=== PATIENT | male | born 1935 | race Caucasian/White ===

== ENCOUNTER 2021-04-07 18:06 | Inpatient (IN) | payer MEDICARE, BC ==
[~2021-04-07] VITALS: Ht 177.8 cm; Wt 128.0 kg
[2021-04-07] MEDS ORDERED: LASIX 40MG TABL40 MG PO (20:13)
[2021-04-07] MEDS ORDERED: ULTRAM 50MG TAB50 MG PO (20:14)
[2021-04-07] MEDS ORDERED: PRINIVIL40 MG PO (20:14)
[2021-04-07] MEDS ORDERED: MOBIC15 MG PO (20:14)
[2021-04-07] MEDS ORDERED: NORVASC 5MG5 MG/TAB PO (20:14)
[2021-04-07] MEDS ORDERED: SYNTHROID0.05 MG/TA PO (20:15)
[2021-04-07] MEDS ORDERED: ZYLOPRIM 300MG300 MG PO (20:15)
[2021-04-07 21:04] VITALS: BP 122/57; PULSE 90; TEMP 99.9
[2021-04-07] MEDS ORDERED: ASPIRIN 81M81 MG/TA2 PO (22:29)
[2021-04-08] VITALS (7 sets, daily range): BP systolic 97–115; BP diastolic 43–64; PULSE 78–109; TEMP 97.2–99.3
--- NOTE | 2021-04-08 02:07 | NUR ---
PATIENT TO FLOOR AROUND 1999 BY EMS STAFF. VSS. ASSESSMENT DONE. EMAR COMPLETED WITH HELP OF PATIENTS DAUGHTER, SUSY OVER THE PHONE. DENIES PAIN. PATIENT WAS INCONTINENT OF URINE AND LINENS WERE CHANGED. PATIENT NOW WEARING BRIEF. RED AND EXCORIATED IN SKIN FOLDS AND ON THE TIP OF THE PENIS/FORESKIN. 20 G TO L FA WITH IV ABX INFUSING INTERMITTENTLY. HAS BEEN NPO SINCE MIDNIGHT. 4 L O2 INFUSING VIA NC. HAS BEEN RESTING IN BED.
[2021-04-08 07:34] LABS: BASO % 0.2 % (0.0-2.0); EOS % 0.1 % (0.0-4.0); GRAN # 14.2 K/mm3 (1.4-6.5); GRAN % 86.6 % (42.2-75.2); HEMATOCRIT 44.9 % (42.0-52.0); HEMOGLOBIN 13.7 g/dl (13.5-18.0); LYMPH # 0.7 K/mm3 (1.2-3.4); MEAN CELL VOLUME 94 fl (80.0-100.0); MEAN CORPUSCULAR HEMOGLOBIN 29 pg (27-31); MEAN CORPUSCULAR HGB CONC 31 g/dl (33.0-37.0); MEAN PLATELET VOLUME 11.9 fl (7.4-10.4); MONO # 1.4 K/mm3 (0.1-0.6); MONO % 8.5 % (1.7-9.3); PLATELET COUNT 214 K/mm3 (130-400); RED BLOOD COUNT 4.79 M/mm3 (4.20-5.60); REDCELL DISTRIBUTION WIDTH-CV 14.2 % (11.5-14.5)
[2021-04-08 07:54] LABS: CREATININE, serum 1.02 mg/dL (0.72-1.25); POTASSIUM 4.7 mmol/L (3.5-4.5)
--- NOTE | 2021-04-08 10:38 | NUR ---
SW met with patient to complete intake. Patient states that he lives alone and his next of contact is daughter Yamile [phone]. Patient provides that he uses a walker currently, and states for the most part is independent with ADLs Patient provides that he does not utilize any home health services at this time. Patient provides that his PCP is Dr Andrade, pharmacy is [facility], and DPOA is his daugther which he has documenation at his home. Patient's plan is to return to his home up on DC and has no concerns with doing so. SW will continue to follow. DC plan: home/lives alone (may need placement)
--- NOTE | 2021-04-08 11:55 | NUR ---
PT'S PO MEDS WERE HELD THIS MORNING DUE TO PATIENT BEING NPO FOR POSSIBLE PROCEDURE. DR. HIDALGO DOES NOT PLAN TO PROCEED WITH PROCEDURE, PATIENT HAS BEEN ADVANCED TO LIQUID DIET AND ORAL MEDS ARE NOW BEING ADMINISTERED. HOWEVER, PATIENT'S BLOOD PRESSURE IS SOFT (108/57) AND RN CONSULTED WITH DR. BENAVIDEZ WHO GAVE VERBAL ORDER TO HOLD ORAL BLOOD PRESSURE MEDS BUT ADMINISTER LASIX.
[2021-04-08 14:31] LABS: MAGNESIUM 2.1 mg/dL (1.6-2.6)
--- NOTE | 2021-04-08 18:50 | NUR ---
Bedside shift report received, assumed care for goring cutter. Assessment complete. A&Ox4-very drowsy and lethargic. LINA Kamara-Hospitalist has been in to evaluate patient due to increased O2 needs/tachypnea. O2 currently at 6L/HFNC with O2 sats in mid 90s. Denies pain/nausea. Lungs with fine crackles all snider. Plan of care discussed for this shift to include meds/O2/breathing tx/calling for questions or concerns. Call light in reach. Will monitor.
--- NOTE | 2021-04-08 19:09 | NUR ---
RT at bedside for EKG/breathing tx.
[2021-04-08 20:08] LABS: ARTERIAL BLD GAS O2 SATURATION 94.9 % (92-100); ARTERIAL BLD GAS TCO2 CT 34.4; ARTERIAL BLOOD GAS BASE EXCESS 0.7 (-2-2); ARTERIAL BLOOD GAS HCO3 31.7 meq/L (22-26); ARTERIAL BLOOD GAS PO2 76.8 mmHg (80-100)
[2021-04-08 20:10] LABS: ARTERIAL BLOOD GAS PCO2 86.9 mmHg (35-45); ARTERIAL BLOOD GAS pH 7.18 (7.35-7.45)
[2021-04-08 22:08] LABS: ARTERIAL BLD GAS O2 SATURATION 93.2 % (92-100); ARTERIAL BLD GAS TCO2 CT 35.6; ARTERIAL BLOOD GAS BASE EXCESS 2.4 (-2-2); ARTERIAL BLOOD GAS PCO2 84.1 mmHg (35-45); ARTERIAL BLOOD GAS PO2 65.9 mmHg (80-100); ARTERIAL BLOOD GAS pH 7.21 (7.35-7.45)
--- NOTE | 2021-04-09 00:10 | NUR ---
Patient remains on BiPaP and is tolerating well. Denies pain/nausea/shortness of breath. Vs remain stable.
--- NOTE | 2021-04-09 02:12 | NUR ---
Much more alert now. BiPaP continues and tolerating well. Repositioned in bed at this time-debbie care given. Incontinent of a large amount of urine. Denies current needs. Call light in reach. Will monitor.
--- NOTE | 2021-04-09 03:06 | NUR ---
Called to desk stating he was starving and hadnt eaten all day. BiPaP removed and HFNC applied to could eat. Denies pain/nausea. Call lig in reach. Will monitor.
--- NOTE | 2021-04-09 03:44 | NUR ---
BiPaP reapplied at this time. Tolerated full liquids well.
[2021-04-09 04:18] VITALS: BP 94/48; PULSE 86; TEMP 98.9
[2021-04-09 05:12] LABS: ARTERIAL BLD GAS O2 SATURATION 94.3 % (92-100); ARTERIAL BLD GAS TCO2 CT 28.9; ARTERIAL BLOOD GAS BASE EXCESS -1.2 (-2-2); ARTERIAL BLOOD GAS PCO2 61.6 mmHg (35-45); ARTERIAL BLOOD GAS PO2 67.4 mmHg (80-100); ARTERIAL BLOOD GAS pH 7.26 (7.35-7.45)
--- NOTE | 2021-04-09 06:27 | NUR ---
Dr Lopez notified of new consult for patient.
[2021-04-09 06:43] LABS: BASO % 0.1 % (0.0-2.0); GRAN # 12.2 K/mm3 (1.4-6.5); GRAN % 84.1 % (42.2-75.2); HEMATOCRIT 40.3 % (42.0-52.0); LYMPH # 0.7 K/mm3 (1.2-3.4); MEAN CELL VOLUME 94 fl (80.0-100.0); MEAN CORPUSCULAR HEMOGLOBIN 28 pg (27-31); MEAN CORPUSCULAR HGB CONC 30 g/dl (33.0-37.0); MONO # 1.5 K/mm3 (0.1-0.6); MONO % 10.1 % (1.7-9.3); PLATELET COUNT 272 K/mm3 (130-400); RED BLOOD COUNT 4.31 M/mm3 (4.20-5.60); REDCELL DISTRIBUTION WIDTH-CV 14.3 % (11.5-14.5)
[2021-04-09 06:56] LABS: CALCIUM 8.6 mg/dL (8.4-10.2); CREATININE, serum 1.33 mg/dL (0.72-1.25); POTASSIUM 5.2 mmol/L (3.5-4.5)
[2021-04-09 08:14] VITALS: BP 116/56; PULSE 65; TEMP 99.1
--- NOTE | 2021-04-09 08:15 | NUR ---
PATIENT IS RESTING COMFORTABLY IN BED WITH CPAP IN PLACE. PATIENT IS ALERT AND ORIENTED TO PERSON. PATIENT DENIES ANY NEEDS AT THIS TIME. WILL CONTINUE TO MONITOR.
--- NOTE | 2021-04-09 08:45 | NUR ---
CPAP REMOVED FOR PATIENT TO EAT BREAKFAST. TRAY SET UP AND PATIENT ASSISTED WITH LIQUID DIET FOR BREAKFAST. PATIENT STATES HE IS VERY THIRSTY. PATIENT NOTED TO BE VERY UNSTEADY AND SHAKING/DROPPING ITEMS WHILTE ATTEMPTING TO EAT.
--- NOTE | 2021-04-09 09:52 | NUR ---
NASAL CANNULA REMOVED AND CPAP REAPPLIED AFTER PATIENT FINISHED BREAKFAST. RT AT BEDSIDE.
[2021-04-09 10:31] LABS: ARTERIAL BLD GAS O2 SATURATION 93.5 % (92-100); ARTERIAL BLD GAS TCO2 CT 34.4; ARTERIAL BLOOD GAS BASE EXCESS 3.7 (-2-2); ARTERIAL BLOOD GAS HCO3 32.3 meq/L (22-26); ARTERIAL BLOOD GAS PO2 65.6 mmHg (80-100); ARTERIAL BLOOD GAS pH 7.29 (7.35-7.45)
[2021-04-09 10:32] LABS: ARTERIAL BLOOD GAS PCO2 69.1 mmHg (35-45)
--- NOTE | 2021-04-09 11:05 | NUR ---
HAYES CATHETER PLACED FOR PATIENT COMFORT.
--- NOTE | 2021-04-09 12:18 | NUR ---
SAMANTHA informed patient would need assistance finding placement due to clinical concerns. SAMANTHA called daughter Yamile who stated she understands the concern for placement and would prefer a facilty that is closer to her. SAMANTHA asked daugher of choices she prefered and daughter stated [facility] [place] or [facility]. SAMANTHA faxed ref documentation to both facilities. SAMANTHA will continue to follow.
[2021-04-09 12:24] VITALS: BP 104/43; PULSE 78; TEMP 98
[2021-04-09 16:08] VITALS: BP 136/69; PULSE 78; TEMP 98.4
[2021-04-09 19:39] LABS: ARTERIAL BLD GAS O2 SATURATION 94.3 % (92-100); ARTERIAL BLD GAS TCO2 CT 29.9; ARTERIAL BLOOD GAS BASE EXCESS 1.2 (-2-2); ARTERIAL BLOOD GAS HCO3 28.2 meq/L (22-26); ARTERIAL BLOOD GAS PCO2 55.6 mmHg (35-45); ARTERIAL BLOOD GAS PO2 69.7 mmHg (80-100); ARTERIAL BLOOD GAS pH 7.32 (7.35-7.45)
[2021-04-09 20:00] VITALS: BP 117/38; PULSE 95; TEMP 97.2
--- NOTE | 2021-04-09 22:59 | NUR ---
Patient assessed around 2034. Alert, oriented to self. Redirected to time, place, and situation, but forgetful. Denies pain and discomfort. INT to left hand. IV ABX running per orders. Denies SOB and dyspnea. On BIPAP per orders. Indwelling dunlap catheter patent, draining clear yellow urine via dependent drainage. 3+ edema BLE. In bed with call light within reach. Bed alarm on.
[2021-04-10] VITALS (7 sets, daily range): BP systolic 95–147; BP diastolic 46–90; PULSE 66–116; TEMP 97.9–98.5
--- NOTE | 2021-04-10 05:15 | NUR ---
Patient has been awake most of shift. Has been pulling at BIPAP and taking off multiple times. Each time staff redirected which would only help for short periods of time. Denies pain and discomfort. In bed with call light within reach. Bed alarm on.
[2021-04-10 05:37] LABS: ARTERIAL BLD GAS O2 SATURATION 93.3 % (92-100); ARTERIAL BLOOD GAS BASE EXCESS 2.4 (-2-2); ARTERIAL BLOOD GAS HCO3 25.8 meq/L (22-26); ARTERIAL BLOOD GAS PCO2 36.5 mmHg (35-45); ARTERIAL BLOOD GAS PO2 58.4 mmHg (80-100); ARTERIAL BLOOD GAS pH 7.47 (7.35-7.45)
[2021-04-10 06:40] LABS: HEMATOCRIT 39.8 % (42.0-52.0); HEMOGLOBIN 12.5 g/dl (13.5-18.0); MEAN CELL VOLUME 91 fl (80.0-100.0); MEAN CORPUSCULAR HEMOGLOBIN 29 pg (27-31); MEAN CORPUSCULAR HGB CONC 31 g/dl (33.0-37.0); MEAN PLATELET VOLUME 10.8 fl (7.4-10.4); PLATELET COUNT 269 K/mm3 (130-400); RED BLOOD COUNT 4.39 M/mm3 (4.20-5.60); REDCELL DISTRIBUTION WIDTH-CV 13.6 % (11.5-14.5)
--- NOTE | 2021-04-10 06:45 | NUR ---
Report received. Pt restless in bed, pulling at IV and BIPAP mask. Incontinent of loose stool, cleaned up and repositioned in bed. Remains agitated and difficult to console.
[2021-04-10 06:57] LABS: CALCIUM 9.2 mg/dL (8.4-10.2); CREATININE, serum 1.14 mg/dL (0.72-1.25); POTASSIUM 4.8 mmol/L (3.5-4.5)
[2021-04-10 08:21] LABS: BAND 4 % (0-10); LYMPHOCYTE 2 % (20.0-51.0); NEUTROPHILS 94 % (42.0-75.2); PLATELET ESTIMATE NORMAL (NORMAL)
--- NOTE | 2021-04-10 09:15 | NUR ---
Shift assessment complete. Pt lying in bed, has been agitated this morning and pulled BIPAP off and IV out. IV catheter tip intact, site w/o s/s complication. O2 sats 97% on RA, RT notified and okay with keeping BIPAP off for now. Pt calmer and more cooperative at this time. Drowsy and disoriented. New 20 gauge IV started to left wrist and secured w/tape and CORINE wrap. Breathing shallow and labored w/repositioning. Bed alarm on and call light in reach.
--- NOTE | 2021-04-10 16:33 | NUR ---
Director Revenue contacted Michael at [facility] who advised they are currently reviewing referral and may have openings later this week. SAMANTHA contacted [facility] and was advised they are currently full. SAMANTHA followed up with patient's daughter, Yamile who advised her brother, Celestino (ph#[phone]) is at bedside and was advised by the physician that a [facility] eval may be necessary. SAMANTHA followed up with Celestino who stated he was agreeable to this. Celestino and Yamile prefer the [place] location, however SAMANTHA advised that this may not be possible depending on bed availability. Celestino verbalized understanding. SAMANTHA contacted Anand at [facility] and faxed referral. Discharge Plan: [facility]
--- NOTE | 2021-04-10 18:23 | NUR ---
Pt more alert, calm, and cooperative throughout day. Partially oriented. At this time, pt taken off BIPAP and placed on 6 lpm O2 HFNC with sats 91-93%.
--- NOTE | 2021-04-10 21:24 | NUR ---
PATIENT DOING WELL TONIGHT. VERY DROWSY. STARTED AT 5 L O2 VIA NC THIS EVENING AND WAS PLACED ON BIPAP FOR HS. NO S/S OF PAIN NOTED. IV TO L WRIST PATENT AND IV ABX INFUSING INTERMITTENTLY. DESENEX APPLIED IN SKIN FOLDS AND CREAM APPLIED TO PENIS. HAYES TO DD WITH CLEAR YELLOW URINE OUT. RESTING IN BED, CALL LIGHT WITHIN REACH.
[2021-04-11 04:29] VITALS: BP 105/69; PULSE 72; TEMP 98.6
[2021-04-11 07:21] VITALS: BP 119/71; PULSE 85; TEMP 98.1
[2021-04-11 07:22] LABS: HEMATOCRIT 40.2 % (42.0-52.0); HEMOGLOBIN 12.4 g/dl (13.5-18.0); MEAN CELL VOLUME 91 fl (80.0-100.0); MEAN CORPUSCULAR HEMOGLOBIN 28 pg (27-31); MEAN CORPUSCULAR HGB CONC 31 g/dl (33.0-37.0); MEAN PLATELET VOLUME 10.6 fl (7.4-10.4); PLATELET COUNT 295 K/mm3 (130-400); RED BLOOD COUNT 4.44 M/mm3 (4.20-5.60); REDCELL DISTRIBUTION WIDTH-CV 13.6 % (11.5-14.5)
[2021-04-11 07:34] LABS: ALBUMIN 2.5 gm/dL (3.4-4.8); BILIRUBIN,TOTAL 0.4 mg/dL (0.2-1.2); CALCIUM 9.3 mg/dL (8.4-10.2); CREATININE, serum 1.44 mg/dL (0.72-1.25); POTASSIUM 4.9 mmol/L (3.5-4.5); TOTAL PROTEIN 5.9 gm/dL (6.2-8.1)
[2021-04-11 08:14] LABS: BAND 5 % (0-10); LYMPHOCYTE 5 % (20.0-51.0); NEUTROPHILS 86 % (42.0-75.2); PLATELET ESTIMATE NORMAL (NORMAL)
[2021-04-11 11:31] VITALS: BP 126/61; PULSE 97; TEMP 97.7
--- NOTE | 2021-04-11 13:37 | NUR ---
Italian Lecturer followed up with Anand who advised patient is approved to admit, however they are waiting on bed availability. Discharge Plan: [facility]
[2021-04-11 16:07] VITALS: BP 108/63; PULSE 123; PULSE 87; TEMP 98.3
--- NOTE | 2021-04-11 16:31 | NUR ---
PT A&O X 3 THIS SHIFT. APPROPRIATELY WEARS HIS NC. PT ABLE TO STAND AT EDGE OF BED WITH THERAPY TODAY. HAD BED BATH. DENIES ABD PAIN AND IS TOLERATING FULL LIQUID DIET. PLAN TO DC TO [facility] WHEN BED IS AVAILABLE.
[2021-04-11 20:14] VITALS: BP 119/74; PULSE 80; TEMP 97.6
--- NOTE | 2021-04-11 21:10 | NUR ---
Pt doing well tonight. He is not having any pain complaints during assessment. Just went in to reposition pt and he had some complaints of his back hurting, denies any needs. Pt does have redness under skin folds, powder applied. Catheter care completed and ointment applied per order. No needs verbalized, call light within reach
[2021-04-12 00:23] VITALS: BP 112/55; PULSE 107; TEMP 98
--- NOTE | 2021-04-12 00:31 | NUR ---
Pt consistently ringing the call light as he reports he is not comfortable. Pt has been repositioned to both the right and left sides as well as his back. Pt being repositioned back to his right side and pt had incontinent stool. Pt was unaware that he had gone. Cleaned pt up and new bed pad applied. Pt placed on his right side with bipap in place. Call light within reach
[2021-04-12 04:08] LABS: ARTERIAL BLD GAS O2 SATURATION 95.1 % (92-100); ARTERIAL BLD GAS TCO2 CT 38.7; ARTERIAL BLOOD GAS BASE EXCESS 10.2 (-2-2); ARTERIAL BLOOD GAS HCO3 36.9 meq/L (22-26); ARTERIAL BLOOD GAS PCO2 59.3 mmHg (35-45); ARTERIAL BLOOD GAS pH 7.41 (7.35-7.45)
[2021-04-12 04:13] VITALS: BP 142/77; PULSE 89; TEMP 97.8
--- NOTE | 2021-04-12 05:01 | NUR ---
Pt continued to be repositioned throughout the night. Pt just moved to his left side. Pt has no incontinent stool at this time.
[2021-04-12 06:30] LABS: HEMOGLOBIN 12.6 g/dl (13.5-18.0); MEAN CELL VOLUME 94 fl (80.0-100.0); MEAN CORPUSCULAR HEMOGLOBIN 28 pg (27-31); MEAN CORPUSCULAR HGB CONC 30 g/dl (33.0-37.0); MEAN PLATELET VOLUME 10.5 fl (7.4-10.4); PLATELET COUNT 304 K/mm3 (130-400); RED BLOOD COUNT 4.46 M/mm3 (4.20-5.60); REDCELL DISTRIBUTION WIDTH-CV 13.5 % (11.5-14.5)
[2021-04-12 06:51] LABS: CALCIUM 9.3 mg/dL (8.4-10.2); CREATININE, serum 1.14 mg/dL (0.72-1.25); POTASSIUM 4.8 mmol/L (3.5-4.5)
[2021-04-12 07:41] VITALS: BP 127/44; PULSE 69; TEMP 97.5
[2021-04-12 08:32] LABS: BAND 3 % (0-10); LYMPHOCYTE 2 % (20.0-51.0); METAMYELOCYTE 1 % (0-0); NEUTROPHILS 91 % (42.0-75.2); PLATELET ESTIMATE NORMAL (NORMAL)
[2021-04-12 11:42] VITALS: BP 110/75; PULSE 98; TEMP 97.8
--- NOTE | 2021-04-12 12:59 | NUR ---
Commercial Engineer faxed clinical updates to Anand at [facility].
--- NOTE | 2021-04-12 14:26 | NUR ---
Shift assessment performed. Patient alert and oriented x3. VSS. Patient here for abdominal pain, weakness, and a recent fall. Patient does not recall incident. Patient denies any pain at this time. Patient incontinent of stool, cleaned, and application of desenex on posterior. Patient is resting in bed with call light near.
[2021-04-12 15:36] VITALS: BP 109/75; PULSE 88; TEMP 98.3
--- NOTE | 2021-04-12 19:01 | NUR ---
Patient back to bed. Patient was weak on his feet. Sit to stand was used with instuction to safety get patient back to bed. Patient did have a loose incontinent stool. Pericares given. Odom remains to DD with adequate urine output. Patient did well with full liquid dinner. Patient was assisted with shaving this evening. Patient reminded he will need to use bipap tonight. fan provided for comfort & his request. His daughter has been at bedside. Bedside report to Elise MAKI.
--- NOTE | 2021-04-12 20:00 | NUR ---
Bedside shift report received, assumed care for nigth shift. Assessment complete. A&Ox4. Denies pain/nausea. Short of breath with activity. Occasional upper lobe bilat insp/exp wheezing noted. Bases diminished. O2@5L/HFNC with adequate saturations. Odom cath with pink tinged urine. INT to left wrist flushes without difficulty. Plan of care discussed for this shift to include meds/BiPaP/calling for questions/concerns. Verbalizes understanding. Call light in reach. Will monitor.
[2021-04-12 21:07] VITALS: BP 133/75; PULSE 87; TEMP 98.2
[2021-04-13] VITALS (7 sets, daily range): BP systolic 98–126; BP diastolic 53–89; PULSE 68–143; TEMP 97.6–98.2
--- NOTE | 2021-04-13 | NUR ---
Resting eyes closed. No s/s of pain noted. BiPaP on. Will monitor.
--- NOTE | 2021-04-13 03:13 | NUR ---
Incontinent of stool-small smear. Debbie care completed and powder applied to debbie area and skin folds. Ointment applied to penis. Repositioned in bed with pillow support. Denies pain/nausea/shortness of breath. BiPaP on.
--- NOTE | 2021-04-13 05:51 | NUR ---
Rested well this shift. Denies nausea/pain. Short of breath with ativity. Adequate output to dunlap cath-pink tinged. Repositioned q2h. BiPAP on. Denies current needs. Call light in reach. Will monitor.
[2021-04-13 06:38] LABS: BASO % 0.2 % (0.0-2.0); GRAN % 80.8 % (42.2-75.2); HEMATOCRIT 44.3 % (42.0-52.0); HEMOGLOBIN 13.6 g/dl (13.5-18.0); LYMPH # 0.7 K/mm3 (1.2-3.4); LYMPH % 7.2 % (20.0-51.0); MEAN CELL VOLUME 92 fl (80.0-100.0); MEAN CORPUSCULAR HEMOGLOBIN 28 pg (27-31); MEAN CORPUSCULAR HGB CONC 31 g/dl (33.0-37.0); MEAN PLATELET VOLUME 10.2 fl (7.4-10.4); MONO % 10.5 % (1.7-9.3); PLATELET COUNT 303 K/mm3 (130-400); REDCELL DISTRIBUTION WIDTH-CV 13.6 % (11.5-14.5)
[2021-04-13 06:51] LABS: ALBUMIN 2.6 gm/dL (3.4-4.8); BILIRUBIN,TOTAL 0.4 mg/dL (0.2-1.2); CALCIUM 9.3 mg/dL (8.4-10.2); CREATININE, serum 1.06 mg/dL (0.72-1.25); POTASSIUM 4.5 mmol/L (3.5-4.5); TOTAL PROTEIN 5.7 gm/dL (6.2-8.1)
[2021-04-13 06:52] LABS: ARTERIAL BLD GAS O2 SATURATION 95.7 % (92-100); ARTERIAL BLD GAS TCO2 CT 34.9; ARTERIAL BLOOD GAS BASE EXCESS 8.6 (-2-2); ARTERIAL BLOOD GAS HCO3 33.4 meq/L (22-26); ARTERIAL BLOOD GAS PCO2 46.9 mmHg (35-45); ARTERIAL BLOOD GAS PO2 73.9 mmHg (80-100); ARTERIAL BLOOD GAS pH 7.47 (7.35-7.45)
--- NOTE | 2021-04-13 06:55 | NUR ---
appears to be sleeping, bed with BIPAP on, bedside shift report received from GLYNN Olivares
--- NOTE | 2021-04-13 07:54 | NUR ---
sitting up in bed and ready to have breakfast, denies pain or needs at this time
--- NOTE | 2021-04-13 08:30 | NUR ---
with 2 assist up to bathroom and then out and sitting up in chair, had breakfast and tolerated well
--- NOTE | 2021-04-13 09:50 | NUR ---
Dr Lopez was in to see patient, full assessment completed, see inteventions for further info
--- NOTE | 2021-04-13 11:07 | NUR ---
remains sitting up in chair without c/os
--- NOTE | 2021-04-13 12:32 | NUR ---
Dr Little and care team in to see patient, O2 sat 100% on O2 at 6L/nc, O2 down to 4L
--- NOTE | 2021-04-13 12:55 | NUR ---
Senior Scheduler contacted Anand at [facility] and faxed clinical updates. SW also provided bipap settings. Anand advised patient still quaifies at this time and will hopefully have a bed soon.
--- NOTE | 2021-04-13 13:51 | NUR ---
O2 sat 97% on 4L/NC, O2 down to 3L
--- NOTE | 2021-04-13 15:00 | NUR ---
assisted out of chair and back to bed with use of sit to stand, tolerated well,
--- NOTE | 2021-04-13 16:13 | NUR ---
O2 sat is 93% on 3L/NC
--- NOTE | 2021-04-13 16:30 | NUR ---
resting in bed without c/os
--- NOTE | 2021-04-13 17:45 | NUR ---
resting in bed watching TV, had supper and tolerated well
--- NOTE | 2021-04-13 18:43 | NUR ---
bedside shift report given to GLYNN Olivares
--- NOTE | 2021-04-13 20:00 | NUR ---
Bedside shift report received, assumed care for nigth shift. Assessment complete. A&Ox4. VS stable. Denies pain/nausea. Short of breath with activity. O2@3L/NC with adequate oxygenation. Odom cath with pink tinged urine. SCDs bilat. Plan of care discussed for this shift to include HS meds/BiPAP/Calling for questions/concerns. Verbalizes understanding. Denies needs. Call light in reach. Will monitor.
--- NOTE | 2021-04-14 01:23 | NUR ---
Called stating he needed to have a BM. Large semi liquid dark brown stool. Repositioned in bed with pillow support. BiPAP on. Will monitor.
[2021-04-14 03:54] VITALS: BP 126/85; PULSE 81; TEMP 97.8
[2021-04-14 05:56] LABS: HEMATOCRIT 42.2 % (42.0-52.0); HEMOGLOBIN 12.9 g/dl (13.5-18.0); MEAN CELL VOLUME 92 fl (80.0-100.0); MEAN CORPUSCULAR HEMOGLOBIN 28 pg (27-31); MEAN CORPUSCULAR HGB CONC 31 g/dl (33.0-37.0); MEAN PLATELET VOLUME 10.2 fl (7.4-10.4); PLATELET COUNT 281 K/mm3 (130-400); RED BLOOD COUNT 4.59 M/mm3 (4.20-5.60); REDCELL DISTRIBUTION WIDTH-CV 13.7 % (11.5-14.5)
--- NOTE | 2021-04-14 06:13 | NUR ---
Rested well over night. BiPaP on. Denied pain/nausea. Short of breath with activity. VS remained stable. Had a med BM. Denies current needs. Call light in reach. Will monitor.
[2021-04-14 06:15] LABS: CALCIUM 8.9 mg/dL (8.4-10.2); CREATININE, serum 0.83 mg/dL (0.72-1.25); POTASSIUM 4.2 mmol/L (3.5-4.5)
[2021-04-14 07:25] LABS: LYMPHOCYTE 12 % (20.0-51.0); NEUTROPHILS 80 % (42.0-75.2)
[2021-04-14 07:27] LABS: HYPOCHROMIA 3+; PLATELET ESTIMATE NORMAL (NORMAL)
[2021-04-14 08:37] VITALS: BP 99/58; PULSE 88; TEMP 97.2
[2021-04-14 11:20] VITALS: BP 102/78; PULSE 87; TEMP 98.1
--- NOTE | 2021-04-14 14:57 | NUR ---
SAMANTHA contacted Anand at [facility] to follow up on whether they have a bed or not for the patient today. Anand reports that the patient is #4 on their list and he is hoping to have discharges this weekend. SAMANTHA faxed updates to [facility]. The hospitalist notified SAMANTHA that pulmonology is recommending that the patient will just need a bipap at night and could go to a SNF now. SAMANTHA staffed with RT and obtained the patient's bipap settings. SAMANTHA contacted Belgica, director of partnerships, at [facility] to inquire if they can accomodate a bipap. Belgica reports that they can. She requested that SW send her updates and states that they would not be able to look at doing an admission until possibly Saturday, if they can accept. SAMANTHA faxed updates and the patient's bipap settings to Belgica at [facility]. SAMANTHA then met with the patient and updated him on the above. He is in agreement to both [facility] or [facility]. SAMANTHA then contacted and updated the patient's daughter, Yamile. She is also in agreement to the plan. *Discharge plan: [facility] has accepted-awaiting bed. [facility] has not accepted yet. Awaiting them to review updates and they would need to obtain a bipap*
[2021-04-14 15:36] VITALS: BP 107/67; PULSE 82; TEMP 98.2
--- NOTE | 2021-04-14 15:59 | NUR ---
Belgica, at [facility] contacted SW. Belgica reports that they can probably take the patient on Saturday. She is going to reach out to [facility] in [place] about the bipap and reach out to family. She reports that their machine adjuster leader, Michael, will be back in the office on Saturday and for SW to touch base with Michael on Saturday. SW to continue to follow.
--- NOTE | 2021-04-14 16:50 | NUR ---
[facility] reports that [facility] are able to get the bipap for the patient by Saturday.
[2021-04-14 20:58] VITALS: BP 100/78; PULSE 95; TEMP 98.1
[2021-04-15] VITALS (7 sets, daily range): BP systolic 86–133; BP diastolic 42–68; PULSE 51–96; TEMP 97.6–99.4
--- NOTE | 2021-04-15 01:46 | NUR ---
PATIENT DOING WELL TONIGHT. UP AND SAT AT EDGE OF BED. ALERT AND ORIENTED. REDDNESS BETWEEN SKIN FOLDS IMPROVED, DESENEX APPLIED. SOME BLANCHABLE REDDNESS NOTICED TO COCCYX AREA. HAYES TO DD WITH PINK TINGED URINE DRAINING. PATIENT ASLEEP IN BED WEARING BIPAP PER RESPIRATORY. CALL LIGHT WITHIN REACH.
--- NOTE | 2021-04-15 08:20 | NUR ---
Patient up to the bedside commode this am with sit to stand lift. Patient had a BM, pericare provided. Patient sitting up in chair. he did well with breakfast. Will monitor.
[2021-04-15 13:45] LABS: HEMOGLOBIN 13.3 g/dl (13.5-18.0); MEAN CELL VOLUME 92 fl (80.0-100.0); MEAN CORPUSCULAR HEMOGLOBIN 29 pg (27-31); MEAN CORPUSCULAR HGB CONC 31 g/dl (33.0-37.0); MEAN PLATELET VOLUME 10.4 fl (7.4-10.4); PLATELET COUNT 337 K/mm3 (130-400); RED BLOOD COUNT 4.66 M/mm3 (4.20-5.60)
[2021-04-15 13:59] LABS: CALCIUM 9.4 mg/dL (8.4-10.2); CREATININE, serum 1.03 mg/dL (0.72-1.25); POTASSIUM 4.9 mmol/L (3.5-4.5)
[2021-04-15 14:19] LABS: LYMPHOCYTE 7 % (20.0-51.0); MYELOCYTE 2 % (0-0); NEUTROPHILS 89 % (42.0-75.2); PLATELET ESTIMATE NORMAL (NORMAL)
[2021-04-15 14:20] LABS: HYPOCHROMIA 3+
--- NOTE | 2021-04-15 14:56 | NUR ---
Patient sitting up in chair. Did well with lunch. Clarice visited. Patient in good spirits.
--- NOTE | 2021-04-15 18:55 | NUR ---
Patient assisted again to bedside commode. Bm. Pericares given. Sit to stand lift used. Patient in bed for dinner & did well sitting up. Patient positioned in bed for comfort after dinner, lying on his right side. dentures cares provided. glasses off. phone on charge. Bedside report to Rebecca MAKI
[2021-04-16] VITALS (7 sets, daily range): BP systolic 95–129; BP diastolic 42–65; PULSE 74–103; TEMP 97.3–98.2
--- NOTE | 2021-04-16 04:46 | NUR ---
PT RESTING QUIETLY IN BED, BIPAP IN PLACE. PT HAS BEEN A&O WHILE AWAKE ET DENIES PAIN. PT DID AWAKEN DURING NIGHT TO SIT UP IN BED FOR WHILE, STATED THAT HE WAS TIRED OF LAYING DOWN. PT USED CALL LIGHT WHEN READY TO LAY BACK DOWN. PT IS UNABLE TO LIFT LEGS INTO BED OR WHILE HE IS IN BED. 2 ASSIST USED TO REPOSTITON PT. SMEAR OF BM IS SEEN ON SHEETS, LINENS ARE CHANGED. CALL LIGHT WITHIN REACH.
[2021-04-16 08:54] LABS: HEMATOCRIT 40.7 % (42.0-52.0); HEMOGLOBIN 12.5 g/dl (13.5-18.0); MEAN CELL VOLUME 92 fl (80.0-100.0); MEAN CORPUSCULAR HEMOGLOBIN 28 pg (27-31); MEAN CORPUSCULAR HGB CONC 31 g/dl (33.0-37.0); MEAN PLATELET VOLUME 10.3 fl (7.4-10.4); PLATELET COUNT 300 K/mm3 (130-400); RED BLOOD COUNT 4.43 M/mm3 (4.20-5.60)
--- NOTE | 2021-04-16 09:00 | NUR ---
Pt resting in bed, no complaints. He is pleasent and denies any needs. Ointment applied to his penis as well as the desenex powder to his groin. Pt has had breakfast. No needs verbalized, call light within reach
[2021-04-16 09:12] LABS: CALCIUM 9.3 mg/dL (8.4-10.2); CREATININE, serum 0.99 mg/dL (0.72-1.25); POTASSIUM 4.1 mmol/L (3.5-4.5)
[2021-04-16 09:57] LABS: EOSINOPHIL 1 % (0-4); LYMPHOCYTE 8 % (20.0-51.0); NEUTROPHILS 87 % (42.0-75.2)
[2021-04-16 09:58] LABS: HYPOCHROMIA 3+; PLATELET ESTIMATE NORMAL (NORMAL); TOXIC GRANULATION PRESENT
--- NOTE | 2021-04-16 11:30 | NUR ---
Pt up in the chair per PT. He did pivot transfer to the chair using a walker. No pain complaints although he was very weak. No needs verbalized, call light within reach. I did touch base with her daughter and she questioned what type of facility pt was going to as her brother stated it was just an apartment with emergency care. I informed her that he would be going somewhere skilled with 24 hour care. She asked that I confirm this which I did with social work. Attempted to call her back, but there was no answer.
--- NOTE | 2021-04-16 16:00 | NUR ---
Assisted pt back to bed. Took 2 assist. Pt used walker. He was very weak, but was able to do it with time and direction. Pt denied any pain with transfer
[2021-04-17 04:31] VITALS: BP 101/53; PULSE 83; TEMP 97.7
--- NOTE | 2021-04-17 06:03 | NUR ---
PT SLEEPING IN BED, HAS SLEPT ON ET OFF THROUGHOUT NIGHT WITH BIPAP ON, TOLERATES WELL. PT FREQUENTLY ASKS FOR ASSISTANCE WITH BIPAP MASK TO TAKE DRINKS OF WATER. PT IS REPOSITIONED WITH 2 ASSIST DURING NIGHT. HAYES CATH DRAINING DEPENDENTLY, URINE IS RED TINGED. PT IS PLEASANT ET TALKATIVE WHILE AWAKE.
[2021-04-17 07:40] VITALS: BP 112/58; PULSE 92; TEMP 97.2
[2021-04-17] MEDS ORDERED: DESENEX TP (07:46)
[2021-04-17] MEDS ORDERED: BETAMETHASONE D15 G1 TP (07:47)
[2021-04-17] MEDS ORDERED: PREDNISONE10 MG PO (07:48)
[2021-04-17] MEDS ORDERED: IPRATROPIUM BROM3 M1 IH ×2 (07:48→07:49)
--- NOTE | 2021-04-17 10:08 | NUR ---
Michael, at [facility], reports that they are able to accept the patient today and transportation was scheduled at 1130. SAMANTHA notified the clinical team. SAMANTHA contacted and updated the patient's daughter, Yamile. She is in agreement to the plan. SAMANTHA met with the patient and presented and read the IM form outloud to him. The patient requested that SW contact his son, Celestino (ph#[phone]), and read the form to him. SAMANTHA then contacted Celestino and read the IM form outloud to him and updated him on the above. Celestino verbalized understanding and gave SW approval to sign the form on his behalf. The patient is to discharge today, 04/17, to [facility] in [place] for a skilled stay. Transportation was scheduled at 1130, via [facility]. No additional needs at this time.
[2021-04-17 11:09] VITALS: BP 112/58; PULSE 92; TEMP 97.2
--- NOTE | 2021-04-17 11:14 | NUR ---
PATIENT ALERT AND ORIENTED X3. PATIENT'S VSS. PATIENT HERE FOR RESPIRATORY FAILURE AND CHOLECYSTITIS. PATIENT UP IN CHAIR AND PREPARING FOR DISCHARGE TODAY. APPLIED DESENEX TO RY AREA AND APPLIED CREAM TO CATHETER INSERTION SITE. PATIENT GIVEN MORNING MEDICATIONS. PATIENT DENIES ANY PAIN AT THIS TIME.
[2021-04-17 11:17] VITALS: BP 103/59; PULSE 95; TEMP 97.4
--- NOTE | 2021-04-17 11:56 | NUR ---
Patient dressed & ready for discharge. He has lunch prior to discharge & did well. Int Dc. Patient transfered to wheelchair 2 assist. Report called to nurse at [facility].
== END 2021-04-17 11:58 | DRG 444 ==
LOC: SURG 18:06
PROVIDERS: Internal Medicine; Internal Medicine Pulmonary Disease; Physician Assistant; Student in an Organized Health Care Education/Training Program; ADMIT Internal Medicine
PROC: 5A09457 Assistance with Respiratory Ventilation, 24-96 Consecutive Hours, Continuous Positive Airway Pressure (ICD-10-PCS; principal; 2021-04-07)
DX: K80.20 Calculus of gallbladder without cholecystitis without obstruction (principal); J96.22 Acute and chronic respiratory failure with hypercapnia; I13.0 Hypertensive heart and chronic kidney disease with heart failure and stage 1 through stage 4 chronic kidney disease, or unspecified chronic kidney disease; R65.10 Systemic inflammatory response syndrome (SIRS) of non-infectious origin without acute organ dysfunction; Z68.41 Body mass index [BMI] 40.0-44.9, adult; E87.2 Acidosis; J44.1 Chronic obstructive pulmonary disease with (acute) exacerbation; N17.9 Acute kidney failure, unspecified; E66.2 Morbid (severe) obesity with alveolar hypoventilation; I50.9 Heart failure, unspecified; I25.10 Atherosclerotic heart disease of native coronary artery without angina pectoris; N18.9 Chronic kidney disease, unspecified; Z20.822 Contact with and (suspected) exposure to COVID-19; Z66 Do not resuscitate; R41.0 Disorientation, unspecified; N48.1 Balanitis; N47.1 Phimosis; L30.4 Erythema intertrigo; M10.9 Gout, unspecified; E03.9 Hypothyroidism, unspecified; H91.90 Unspecified hearing loss, unspecified ear; Z79.891 Long term (current) use of opiate analgesic; Z79.82 Long term (current) use of aspirin; Z99.81 Dependence on supplemental oxygen
CPT/HCPCS: 99223-AI; 99231-AI; 99232-AI; 99233-AI; 99239; J1644; J1940; J2060; J2270; J2405; J2543; J2920; J2930; J7512